=== PATIENT | male | born 1965 ===

== ENCOUNTER → 2020-10-30 | Day surgery (SDC) | payer OTHER ==
[~2020-10-30] MED LIST: ANALPRAM HC 2.530 GM RECTAL; POLY119PG PO; SURFAK240 M1 PO; ULTRACET PO
== END | disposition home or self-care (01) ==
LOC: ADM 10-23 15:00 → AMB-ENDOS 11:50
PROVIDERS: ATTEND Surgery
DX: D12.2 Benign neoplasm of ascending colon (principal); D12.3 Benign neoplasm of transverse colon; D12.4 Benign neoplasm of descending colon; K64.5 Perianal venous thrombosis; Z20.822 Contact with and (suspected) exposure to COVID-19